=== PATIENT | male | born 1965 | race Caucasian/White ===

== ENCOUNTER 2017-03-27 19:59 | Emergency (ER) | payer OTHER, SELFPAY ==
[~2017-03-27 19:59] MED LIST: ISOVUE-370 76%-LOCM 1 ML ONE
[2017-03-27] MEDS ORDERED: Morphine 4 MG/ML VIAL ONE (20:14)
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
== END 2017-03-27 21:48 | disposition home or self-care (01) ==
LOC: ERS 19:59
DX: S22.089A Unspecified fracture of T11-T12 vertebra, initial encounter for closed fracture (principal); I10 Essential (primary) hypertension; V49.9XXA Car occupant (driver) (passenger) injured in unspecified traffic accident, initial encounter
CPT/HCPCS: 74177; 96374; J2270